=== PATIENT | female | born 1970 | race American Indian/Alaskan Native ===

== ENCOUNTER 2018-06-01 11:54 | Inpatient (IN) | payer OTHER ==
[2018-06-01] MEDS ORDERED: SUBLIMAZE IV PRN (12:59)
[2018-06-01] MEDS ORDERED: DILAUDID IV PRN (12:59)
[2018-06-01] MEDS ORDERED: VERSED IV NR (13:00)
--- NOTE | 2018-06-01 13:02 | Anesthesia Consultation ---
Anesthesia Consult and Med Hx Date of service: 06/01/18 - Airway Anesthetic Teeth Evaluation: Good ROM Head & Neck: Adequate Mental/Hyoid Distance: Adequate Mallampati Class: Class I Intubation Access Assessment: Probably Good - Pulmonary Exam CTA: Yes - Cardiac Exam Cardiac Exam: RRR - Pre-Operative Health Status ASA Pre-Surgery Classification: ASA2 Proposed Anesthetic Plan: General - Pulmonary Hx Smoking: No Hx Sleep Apnea: No - Cardiovascular System Hx Hypertension: No Hx Coronary Artery Disease: No Hx Heart Attack/AMI: No Hx Cardia Arrhythmia: No - Central Nervous System Hx Neuromuscular Disorder: No - Gastrointestinal Hx Gastroesophageal Reflux Disease: No - Endocrine Hx Renal Disease: Yes (hydroureter ) Hx Liver Disease: No Hx Insulin Dependent Diabetes: No Hx Non-Insulin Dependent Diabetes: No - Hematic Hx Sickle Cell Disease: No - Other Systems Hx Alcohol Use: No Hx Obesity: Yes - Additional Comments Anesthesia Medical History Comments: No GAC, No FHAC
--- NOTE | 2018-06-01 13:04 | Anesthesia Day of Surgery ---
Anesthesia Day of Surgery - Day of Surgery Patient Examined: Yes Patient H&P Reviewed: Yes Patient is NPO: Yes Beta Blockers: No (N/A) Cardiac Clearance: No (N/A) Pulmonary Clearance: No (N/a)
[2018-06-01] MEDS: NACL 0.9% 1000 ML 1,000 ML IV SCH ×2 (13:30→20:04)
[2018-06-01] MEDS ORDERED: SUBLIMAZE ONE (13:37)
[2018-06-01] MEDS ORDERED: DIPRIVAN 10 MG/ML IV ONE (13:37)
[2018-06-01] MEDS ORDERED: XYLOCAINE MPF 2% ONE (13:38)
[2018-06-01] MEDS ORDERED: ANCEF/STERILE WATER 2 GM/20 ML IV NR (14:00)
[2018-06-01] MEDS ORDERED: SODIUM CHLORIDE FLUSH SYRINGE 10 ML IV PRN (14:23)
[2018-06-01] MEDS ORDERED: TYLENOL PO PRN (14:23)
[2018-06-01] MEDS ORDERED: ZOFRAN IV PRN (14:23)
[2018-06-01] MEDS ORDERED: PROVENTIL IH PRN (14:23)
--- NOTE | 2018-06-01 14:25 | History and Physical Report ---
History of Present Illness Chief complaint: I have blockage History of present illness: 47 YO Female with Obesity, HTN, Urinary Obstruction admitted directly to Surgical Floor at the request of DR. Nichols. Pt found to have urinary obstruction and it taken to the OR for intervention. Pt denies fever chills, CP, Palpitations, Hematuria, BRBPR, Trauma, or recent ill contacts. Pt seen and evaluated and found to have no acute complaints. No reported nursing events. Urology consulted for surgical intervention. Pt taken electively to OR for intervention. Past History Past Medical History: hypertension, other (Obesity) Past Surgical History: No surgical history, Other (reviewed) Social history: single. denies: smoking Family history: no significant family history (reviewed) Medications and Allergies Allergies Allergy/AdvReac Type Severity Reaction Status Date / Time codeine AdvReac Itching Verified 06/01/18 13:16 latex AdvReac Hives Verified 06/01/18 13:17 Sulfa (Sulfonamide AdvReac Swelling Verified 06/01/18 13:16 Antibiotics) Home Medications Medication Instructions Recorded Confirmed Last Taken Type Acyclovir 400 mg PO PRN 06/01/18 06/01/18 Unknown History Flomax 0.4 mg PO DAILY 06/01/18 06/01/18 05/31/18 23:55 History Losartan 50 mg PO DAILY 06/01/18 06/01/18 05/31/18 09:00 History [place] 5-325 mg TAB 5 mg PO Q6H 06/01/18 06/01/18 05/31/18 23:55 History Ximino 90 mg pe PO DAILY 06/01/18 06/01/18 05/31/18 09:00 History Active Meds: Active Medications Cefazolin Sodium (Ancef/Sterile Water 2 Gm/20 Ml) 2 gm IV PREOP NR Stop: 06/01/18 23:59 Fentanyl (Sublimaze) 100 mcg IV ONCE PRN PRN Reason: Pain , Severe (7-10) Stop: 06/01/18 23:59 Hydromorphone HCl (Dilaudid) 0.5 mg IV Q10MIN PRN PRN Reason: Pain , Severe (7-10) Stop: 06/01/18 23:59 Sodium Chloride (Nacl 0.9% 1000 Ml) 1,000 mls @ 100 mls/hr IV DIRECT KAUR Midazolam HCl (Versed) 2 mg IV PREOP NR Stop: 06/01/18 23:59 Review of Systems Constitutional: no weight loss, no weight gain, no fever Ears, nose, mouth and throat: no ear pain, no ear discharge, no tinnitis, no nose pain Breasts: no change in shape, no swelling, no mass Cardiovascular: no chest pain, no orthopnea, no palpitations, no rapid/irregular heart beat, no edema Respiratory: no cough, no cough with sputum, no excessive sputum, no hemoptysis Gastrointestinal: no nausea, no vomiting, no diarrhea, no constipation Genitourinary Female: no pelvic pain, no flank pain, no menorrhagia, no dysuria, no urinary frequency, no urgency Rectal: no pain, no incontinence, no bleeding Musculoskeletal: no neck stiffness, no neck pain, no shooting arm pain, no arm numbness/tingling, no low back pain Integumentary: no rash, no pruritis, no redness, no sores, no wounds Neurological: no transient paralysis, no paralysis, no weakness, no parathesias, no numbness, no tingling Psychiatric: no memory loss, no change in sleep habits, no sleep disturbances, no insomnia, no hypersomnia, no change in appetite Endocrine: no cold intolerance, no heat intolerance, no polyphagia, no excessive thirst, no polydipsia, no polyuria Hematologic/Lymphatic: no easy bruising, no easy bleeding, no lymphadenopathy, no lymphedema Allergic/Immunologic: no urticaria, no allergic rhinitis, no wheezing Exam - Constitutional General appearance: Present: obese - EENT Eyes: Present: PERRL ENT: hearing intact, clear oral mucosa - Neck Neck: Present: supple, normal ROM - Respiratory Respiratory effort: normal Respiratory: bilateral: CTA - Cardiovascular Heart Sounds: Present: S1 & S2. Absent: rub, click - Extremities Extremities: pulses symmetrical, No edema Peripheral Pulses: within normal limits - Abdominal General gastrointestinal: Present: soft, non-tender, non-distended, normal bowel sounds Female genitourinary: Present: normal - Integumentary Integumentary: Present: clear, warm, dry - Musculoskeletal Musculoskeletal: gait normal, strength equal bilaterally - Psychiatric Psychiatric: appropriate mood/affect, intact judgment & insight - Neurologic Neurologic: CNII-XII intact, moves all extremities Results - Labs CBC & Chem 7: 06/02/18 05:30 06/02/18 05:30 Assessment and Plan - Patient Problems (1) Urinary obstruction Current Visit: Yes Status: Acute Plan to address problem: Urology consulted, Pt taken to OR for intervention. (2) HTN (hypertension) Current Visit: Yes Status: Acute Qualifiers: Hypertension type: essential hypertension Qualified Code(s): I10 - Essential (primary) hypertension Plan to address problem: Monitor bp q shift, continue current care. (3) Obesity Current Visit: Yes Status: Acute Qualifiers: Body mass index: BMI 30.0-30.9 Plan to address problem: Balanced diet, increased physical activity at discharge (4) DVT prophylaxis Current Visit: Yes Status: Acute Plan to address problem: SCD to BLE while in bed.
[2018-06-01] MEDS ORDERED: OMNIPAQUE 300 MG/50 ML (CATH LAB) IV ONE ×2 (14:45)
[2018-06-01] MEDS ORDERED: WATER FOR IRRIG STERILE IR ONE (14:47)
--- NOTE | 2018-06-01 14:56 | Post Operative Note ---
Pre-op diagnosis: Left Hydronephrosis, Rt Atrophic Kidney, AKD/CKD, Fever, Sepsis, Left Pelvi Post-op diagnosis: same Findings: left hydro, w/ some infectious draiange Procedure: cysto, rpg, left stent 7x26 placement Anesthesia: GEREMIASA Surgeon: OLEG MORAN Estimated blood loss: minimal Pathology: none Condition: stable Disposition: PACU
[2018-06-01] MEDS ORDERED: ACYCLOVIR 400 MG PO SCH (18:30)
[2018-06-01] MEDS ORDERED: NORCO PO SCH (18:30)
[2018-06-01] MEDS: NORCO 5/325 PO PRN (20:03)
[2018-06-01 21:13] LABS: Basophils % (Auto) 0.3 % (0.0-1.8); Eosinophils % (Auto) 0.5 % (0.0-4.3); Hematocrit 32.6 % (30.3-42.9); Hemoglobin 11.3 gm/dl (10.1-14.3); Lymphocytes # (Auto) 1.7 K/mm3 (1.2-5.4); Lymphocytes % (Auto) 28.7 % (13.4-35.0); Mean Corpuscular HGB Conc 35 % (30-34); Mean Corpuscular Volume 96 fl (79-97); Monocytes # (Auto) 0.5 K/mm3 (0.0-0.8); Monocytes % (Auto) 7.7 % (0.0-7.3); Platelet Count 269 K/mm3 (140-440); Red Blood Count 3.38 M/mm3 (3.65-5.03); Red Cell Distribution Width 14.2 % (13.2-15.2)
[2018-06-01] MEDS: SODIUM CHLORIDE FLUSH SYRINGE 10 ML IV SCH (21:18)
[2018-06-01 21:36] LABS: Albumin 3.8 g/dL (3.9-5); Calcium 8.4 mg/dL (8.4-10.2)
[2018-06-01] MEDS: ROCEPHIN/NS 1 GM/50 ML 1 GM/50 ML BAG IV SCH (23:23)
[2018-06-02 06:02] LABS: Basophils % (Auto) 0.5 % (0.0-1.8); Eosinophils # (Auto) 0.1 K/mm3 (0.0-0.4); Eosinophils % (Auto) 1.7 % (0.0-4.3); Hematocrit 30.7 % (30.3-42.9); Hemoglobin 10.6 gm/dl (10.1-14.3); Lymphocytes # (Auto) 1.9 K/mm3 (1.2-5.4); Mean Corpuscular HGB Conc 34 % (30-34); Mean Corpuscular Volume 96 fl (79-97); Monocytes # (Auto) 0.5 K/mm3 (0.0-0.8); Monocytes % (Auto) 9.4 % (0.0-7.3); Platelet Count 257 K/mm3 (140-440); Red Blood Count 3.19 M/mm3 (3.65-5.03); Red Cell Distribution Width 14.3 % (13.2-15.2)
[2018-06-02 06:31] LABS: Alanine Aminotransferase 8 units/L (7-56); Albumin 3.4 g/dL (3.9-5); BUN/Creatinine Ratio 7; Blood Urea Nitrogen 7 mg/dL (7-17); Hemolysis Index 9
[2018-06-02] MEDS: NACL 0.9% 1000 ML 1,000 ML IV SCH ×2 (06:37→14:49)
[2018-06-02] MEDS: NORCO 5/325 PO PRN ×3 (06:44→23:05)
--- NOTE | 2018-06-02 08:59 | Fluoroscopy Report ---
FLUOROSCOPY RETROGRADE UROGRAPHY: HISTORY: Left hydronephrosis. FINDINGS: Fluoroscopy was provided by radiology during retrograde urography by the urologist. 8 fluoroscopic images were captured. The right retrograde pyelogram is normal. There appears to be minimal dilatation of the proximal left ureter but no obvious filling defect is identified. Subsequent images demonstrate placement of a left ureteral stent with good drainage of the left collecting system on the final image. IMPRESSION: Minimal left hydronephrosis. A left ureteral stent placement.
[2018-06-02] MEDS: COZAAR PO SCH (09:22)
[2018-06-02] MEDS: FLOMAX PO SCH (09:22)
[2018-06-02] MEDS: SODIUM CHLORIDE FLUSH SYRINGE 10 ML IV SCH ×2 (09:32→23:02)
--- NOTE | 2018-06-02 09:38 | Operative Report ---
PREOPERATIVE DIAGNOSES: 1. Right atrophic kidney. 2. Fever. 3. Left hydronephrosis secondary to left pelvic mass. 4. Renal insufficiency. POSTOPERATIVE DIAGNOSES: 1. Right atrophic kidney. 2. Fever. 3. Left hydronephrosis secondary to left pelvic mass. 4. Renal insufficiency. PROCEDURE: Cystoscopy, bilateral RPG, left 7 x 26 double-J stent. SURGEON: Yovanny Nichols MD ANESTHESIA: General. SPECIMENS: None. ESTIMATED BLOOD LOSS: Minimal. FINDINGS: Left hydroureter, hydronephrosis and some debris on drainage. CLINICAL INDICATIONS: The patient was counseled on RCBA, antibiotics, SCDs. She was evaluated yesterday for the first time, late yesterday in the office. She had stated at that time, she was sent over to have a stent placed in the office. We counseled her and now on her initial evaluation found that they needed anatomical localization as well as in addition to anatomical localization needed relief of the hydronephrosis. The patient had this pelvic ovarian cystic mass, but her pain on Wednesday was significantly worse, and she presented to the Emergency Room where they did a CT. Her pain had been significantly worse at that time since Wednesday for unknown reason. At this point, she was counseled on options and counseled with possible other etiologies of her pain and options for treatment. She was counseled exclusively on risks of stent, including stent ____ for stent. She understood and desired to proceed. DESCRIPTION OF PROCEDURE: The patient was transferred to OR suite in supine position, anesthesia, dorsal lithotomy, prepped and draped in standard fashion. A 22-[place] scope passed. Pancystoscopy 30 and 70 degree lens, no tumors or lesions identified. Right UO cannulated with 8 [place] cone-tipped catheter, contrast injected. Normal right distal ureter, proximal ureter, renal pelvis calyces. Of note, prior to injection, there was noted to be efflux from the right ureteral orifice. At this point, it was performed on the left side with hydroureter, likely above the bony pelvis hydroureter and some mild hydronephrosis. At this point, a Glidewire was manipulated up to the left renal pelvis. A 7 x 26 double-J stent was passed over the wire under direct and fluoroscopic visualization. When the wire and string removed, nice proximal J, nice distal J within the bladder, bladder drained. The ureter was noted to straighten some, the bladder did drain. The scope was withdrawn. Exam under anesthesia bimanual, no definitive palpable hard mass. JOB# [id number] ATS/NTS
[2018-06-02] MEDS ORDERED: [UNRECOGNIZED DRUG - OTHER] PO SCH (10:00)
[2018-06-02] MEDS ORDERED: NON-FORMULARY (Losartan 50 MG) PO SCH (10:00)
[2018-06-02] MEDS ORDERED: NON-FORMULARY (Flomax 0.4 MG) PO SCH (10:00)
--- NOTE | 2018-06-02 10:49 | Event Note ---
Date: 06/02/18 LT HYDRO / PELVIC MASS / CKD / RT ATROPHIC KIDNEY FEVER / UTI - admitted for sepsis monitoring - plan d/c ha, when afebrile and improved; home w/ outpt antibiotics and urology f/u 1 week
[2018-06-02] MEDS: DILAUDID IV PRN ×3 (12:30→20:17)
[2018-06-02] MEDS: ROCEPHIN/NS 1 GM/50 ML 1 GM/50 ML BAG IV SCH (16:40)
--- NOTE | 2018-06-02 17:45 | Progress Note ---
Assessment and Plan LT HYDRO / FEVER / UTI / CKD / LT PELVIC MASSS - s/p stent - per pt can take Hydrocodone w/ o allergic reaction take currently and past - leland malhotra'd - ok to go home from Urology stand point pre op fever resolved, wbc nl - home w/ pain meds / abx - Rx for Hydrocodone and Ceftin an chart Subjective Date of service: 06/02/18 Interval history: pain w/ voiding Objective - Constitutional Vitals: Vital Signs - 12hr 06/02/18 06/02/18 06/02/18 06:44 08:00 08:20 Temperature 98.6 F Pulse Rate 89 85 Respiratory 18 18 Rate Blood Pressure 136/84 [Left] O2 Sat by Pulse 99 Oximetry 06/02/18 08:55 Temperature Pulse Rate Respiratory Rate Blood Pressure [Left] O2 Sat by Pulse 99 Oximetry General appearance: Present: no acute distress - Labs CBC & Chem 7: 06/02/18 05:30 06/02/18 05:30 Labs: Abnormal lab results 06/01/18 06/01/18 06/02/18 Range/Units 20:26 20:26 05:30 RBC 3.38 L 3.19 L (3.65-5.03) M/mm3 MCH 33 H 33 H (28-32) pg MCHC 35 H (30-34) % [place] % (Auto) 7.7 H 9.4 H (0.0-7.3) % Chloride (98-107) mmol/L Glucose 131 H (65-100) mg/dL Calcium (8.4-10.2) mg/dL Total Protein (6.3-8.2) g/dL Albumin 3.8 L (3.9-5) g/dL 06/02/18 Range/Units 05:30 RBC (3.65-5.03) M/mm3 MCH (28-32) pg MCHC (30-34) % [place] % (Auto) (0.0-7.3) % Chloride 107.4 H (98-107) mmol/L Glucose (65-100) mg/dL Calcium 8.0 L (8.4-10.2) mg/dL Total Protein 5.6 L (6.3-8.2) g/dL Albumin 3.4 L (3.9-5) g/dL Medications & Allergies - Medications Allergies/Adverse Reactions: Allergies codeine Adverse Reaction (Verified 06/01/18 13:16) Itching latex Adverse Reaction (Verified 06/01/18 13:17) Hives Sulfa (Sulfonamide Antibiotics) Adverse Reaction (Verified 06/01/18 13:16) Swelling Home Medications: Home Medications Medication Instructions Recorded Confirmed Last Taken Type Acyclovir 400 mg PO PRN 06/01/18 06/01/18 Unknown History Flomax 0.4 mg PO DAILY 06/01/18 06/01/18 05/31/18 23:55 History Losartan 50 mg PO DAILY 06/01/18 06/01/18 05/31/18 09:00 History [place] 5-325 mg TAB 5 mg PO Q6H 06/01/18 06/01/18 05/31/18 23:55 History Ximino 90 mg pe PO DAILY 06/01/18 06/01/18 05/31/18 09:00 History Active Medications: Generic Name Dose Route Start Last Admin Trade Name Freq PRN Reason Stop Dose Admin Acetaminophen 650 mg 06/01/18 14:23 Tylenol PO Q4H PRN Pain MILD(1-3)/Fever >100.5/GONZALES Acetaminophen/Hydrocodone Bitart 1 each 06/01/18 18:40 06/02/18 14:48 [place] 5/325 PO 1 each Q6H PRN Administration Pain, Moderate (4-6) Albuterol 2.5 mg 06/01/18 14:23 Proventil IH Q4HRT PRN Shortness Of Breath Hydromorphone HCl 0.25 mg 06/01/18 14:23 06/02/18 16:35 Dilaudid IV 0.25 mg Q3H PRN Administration Pain, Moderate (4-6) Sodium Chloride 1,000 mls @ 100 mls/hr 06/01/18 13:00 06/02/18 14:49 Nacl 0.9% 1000 Ml IV 100 mls/hr DIRECT KAUR Administration Ceftriaxone Sodium 1 gm in 50 mls @ 100 mls/hr 06/01/18 16:00 06/02/18 16:40 Rocephin/Ns 1 Gm/50 Ml IV 100 mls/hr Q24H KAUR Administration Protocol Losartan Potassium 50 mg 06/02/18 10:00 06/02/18 09:22 Cozaar PO 50 mg QDAY [facility] Administration Miscellaneous Medication 400 mg 06/01/18 18:30 Acyclovir PO PRN [facility] Miscellaneous Medication 90 mg pe 06/02/18 10:00 Ximino PO DAILY [facility] Ondansetron HCl 4 mg 06/01/18 14:23 Zofran IV Q8H PRN Nausea And Vomiting Oxybutynin Chloride 5 mg 06/02/18 16:53 Ditropan PO TID KAUR Sodium Chloride 10 ml 06/01/18 22:00 06/02/18 09:32 Sodium Chloride Flush Syringe 10 Ml IV 10 ml BID KAUR Administration Sodium Chloride 10 ml 06/01/18 14:23 Sodium Chloride Flush Syringe 10 Ml IV PRN PRN LINE FLUSH Tamsulosin HCl 0.4 mg 06/02/18 10:00 06/02/18 09:22 Flomax PO 0.4 mg QDAY [facility] Administration
[2018-06-02] MEDS: DITROPAN PO SCH ×2 (18:06→23:02)
[2018-06-03 05:00] VITALS: BP 125/70
[2018-06-03] MEDS: DILAUDID IV PRN (05:04)
[2018-06-03] MEDS: COZAAR PO SCH (08:17)
[2018-06-03] MEDS: DITROPAN PO SCH (08:18)
[2018-06-03] MEDS: FLOMAX PO SCH (08:18)
--- NOTE | 2018-06-03 13:23 | Progress Note ---
Assessment and Plan Assessment and plan: Left hydronephrosis secondary to left pelvic mass. Patient status post cystoscopy with bilateral RPG and placement of left double-J stent. Nephrology following. SIRS. Fever appears to have resolved. We'll follow cultures. Right atrophic kidney. Obstructive uropathy. Etiology secondary to above. Hypertension. Continue his medications. Morbid obesity. History Interval history: No new issues overnight Hospitalist Physical - Constitutional Vitals: Temp Pulse Resp BP Pulse Ox 98.4 F 64 18 125/70 99 06/03/18 07:54 06/03/18 08:17 06/03/18 07:54 06/03/18 08:17 06/03/18 07:54 General appearance: Present: no acute distress - EENT Eyes: Present: PERRL, EOM intact ENT: hearing intact, clear oral mucosa, dentition normal - Neck Neck: Present: supple, normal ROM - Respiratory Respiratory effort: normal Respiratory: bilateral: CTA - Cardiovascular Rhythm: regular Heart Sounds: Present: S1 & S2. Absent: gallop, rub - Extremities Extremities: no ischemia, No edema, Full ROM - Abdominal General gastrointestinal: soft, non-tender, non-distended, normal bowel sounds - Integumentary Integumentary: Present: clear, warm, dry - Neurologic Neurologic: CNII-XII intact, moves all extremities Results - Labs CBC & Chem 7: 06/02/18 05:30 06/02/18 05:30 Labs: Laboratory Last Values WBC 5.4 K/mm3 (4.5-11.0) 06/02/18 05:30 RBC 3.19 M/mm3 (3.65-5.03) L 06/02/18 05:30 Hgb 10.6 gm/dl (10.1-14.3) 06/02/18 05:30 Hct 30.7 % (30.3-42.9) 06/02/18 05:30 MCV 96 fl (79-97) 06/02/18 05:30 MCH 33 pg (28-32) H 06/02/18 05:30 MCHC 34 % (30-34) 06/02/18 05:30 RDW 14.3 % (13.2-15.2) 06/02/18 05:30 Plt Count 257 K/mm3 (140-440) 06/02/18 05:30 Lymph % (Auto) 35.0 % (13.4-35.0) 06/02/18 05:30 [place] % (Auto) 9.4 % (0.0-7.3) H 06/02/18 05:30 Eos % (Auto) 1.7 % (0.0-4.3) 06/02/18 05:30 Baso % (Auto) 0.5 % (0.0-1.8) 06/02/18 05:30 Lymph # 1.9 K/mm3 (1.2-5.4) 06/02/18 05:30 [place] # 0.5 K/mm3 (0.0-0.8) 06/02/18 05:30 Eos # 0.1 K/mm3 (0.0-0.4) 06/02/18 05:30 Baso # 0.0 K/mm3 (0.0-0.1) 06/02/18 05:30 Seg Neutrophils % 53.4 % (40.0-70.0) 06/02/18 05:30 Seg Neutrophils # 2.9 K/mm3 (1.8-7.7) 06/02/18 05:30 Sodium 142 mmol/L (137-145) 06/02/18 05:30 Potassium 3.7 mmol/L (3.6-5.0) 06/02/18 05:30 Chloride 107.4 mmol/L (98-107) H 06/02/18 05:30 Carbon Dioxide 23 mmol/L (22-30) 06/02/18 05:30 Anion Gap 15 mmol/L 06/02/18 05:30 BUN 7 mg/dL (7-17) 06/02/18 05:30 Creatinine 1.0 mg/dL (0.7-1.2) 06/02/18 05:30 Estimated GFR > 60 ml/min 06/02/18 05:30 BUN/Creatinine Ratio 7 % 06/02/18 05:30 Glucose 100 mg/dL (65-100) 06/02/18 05:30 Calcium 8.0 mg/dL (8.4-10.2) L 06/02/18 05:30 Total Bilirubin 0.50 mg/dL (0.1-1.2) 06/02/18 05:30 AST 12 units/L (5-40) 06/02/18 05:30 ALT 8 units/L (7-56) 06/02/18 05:30 Alkaline Phosphatase 44 units/L (35-129) 06/02/18 05:30 Total Protein 5.6 g/dL (6.3-8.2) L 06/02/18 05:30 Albumin 3.4 g/dL (3.9-5) L 06/02/18 05:30 Albumin/Globulin Ratio 1.5 % 06/02/18 05:30
--- NOTE | 2018-06-03 13:27 | Discharge Summary ---
Providers - Providers Date of Admission: 06/01/18 14:26 Date of discharge: 06/03/18 Attending physician: OLEG NICHOLS 06/01/18 14:26 Consult to Physician [CONS] Routine Comment: Consulting Provider: OLEG NICHOLS Physician Instructions: Reason For Exam: urinary obstruction Primary care physician: DEREK RINCON MD Hospitalization Reason for admission: urinary obs Hospital course: 47 YO Female with Obesity, HTN, Urinary Obstruction admitted directly to Surgical Floor at the request of DR. Nichols. Pt found to have urinary obstruction and it taken to the OR for intervention. The patient was patient was admitted with diagnosis of left hydronephrosis secondary to left pelvic mass. He was also noted to have SIRS with fever. The patient underwent cystoscopy with bilateral RPG and placement of left double-J stent. The patient tolerated the procedure well and was stable postoperatively. Dr. Trevizo saw the patient on the morning of 06/03/18 and reported that the patient was okay to go home from their standpoint and that the fever resolved. Also, leukocytosis was noted to have resolved as well. Dr. Trevizo gave prescriptions for hydrocodone and Ceftin and patient is to follow-up as an outpatient. The nurse discharge the patient under Dr. Trevizo's instructions. Unfortunately, I do not see the patient prior to discharge. Disposition: TO HOME OR SELFCARE Time spent for discharge: 32 - Discharge Diagnoses (1) HTN (hypertension) Status: Acute Qualifiers: Hypertension type: essential hypertension Qualified Code(s): I10 - Essential (primary) hypertension (2) Obesity Status: Acute Qualifiers: Body mass index: BMI 30.0-30.9 (3) Urinary obstruction Status: Acute Core Measure Documentation - Palliative Care Palliative Care/ Comfort Measures: Not Applicable - Core Measures Any of the following diagnoses?: none Exam - Constitutional Vitals: Temp Pulse Resp BP Pulse Ox 98.4 F 64 18 125/70 99 06/03/18 07:54 06/03/18 08:17 06/03/18 07:54 06/03/18 08:17 06/03/18 07:54 - Cardiovascular Heart Sounds: Absent: rub, click Plan Activity: no restrictions Weight Bearing Status: Weight Bear as Tolerated Follow up with: DEREK RINCON MD [Primary Care Provider] - 7 Days Prescriptions: cefUROXime [Ceftin] 500 mg PO Q12H #20 tablet HYDROcodone/APAP 10-325 [[employer] 10-325 mg TAB] 0.5 - 1 each PO Q6HR PRN #25 tablet PRN Reason: Pain
--- NOTE | 2018-06-03 17:33 | Progress Note ---
Assessment and Plan LT HYDRO / FEVER / UTI / CKD / LT PELVIC MASSS - s/p stent - per pt can take Hydrocodone w/ o allergic reaction take currently and past - [place] dc'd - ok to go home from Urology stand point pre op fever resolved, wbc nl - home w/ pain meds / abx - Rx for Hydrocodone and Ceftin an chart 06/03/18 - pt no chills - baseline pre op pain gone - new pain when void pressure - secondary to stent - d/c when ok w/ medicine Subjective Date of service: 06/03/18 Interval history: pain w/ voiding but baseline pain pre op pain gone Objective - Constitutional Vitals: Vital Signs - 12hr 06/03/18 06/03/18 06/03/18 07:54 08:17 10:00 Temperature 98.4 F Pulse Rate 60 64 Respiratory 18 Rate Blood Pressure 114/60 125/70 O2 Sat by Pulse 99 97 Oximetry General appearance: Present: no acute distress - Labs CBC & Chem 7: 06/02/18 05:30 06/02/18 05:30 Medications & Allergies - Medications Allergies/Adverse Reactions: Allergies codeine Adverse Reaction (Verified 06/01/18 13:16) Itching latex Adverse Reaction (Verified 06/01/18 13:17) Hives Sulfa (Sulfonamide Antibiotics) Adverse Reaction (Verified 06/01/18 13:16) Swelling Home Medications: Home Medications Medication Instructions Recorded Confirmed Last Taken Type Acyclovir 400 mg PO PRN 06/01/18 06/01/18 Unknown History Flomax 0.4 mg PO DAILY 06/01/18 06/01/18 05/31/18 23:55 History Losartan 50 mg PO DAILY 06/01/18 06/01/18 05/31/18 09:00 History [place] 5-325 mg TAB 5 mg PO Q6H 06/01/18 06/01/18 05/31/18 23:55 History Ximino 90 mg pe PO DAILY 06/01/18 06/01/18 05/31/18 09:00 History HYDROcodone/APAP 10-325 [[place] 0.5 - 1 each PO Q6HR PRN #25 tablet 06/02/18 Unknown Rx 10-325 mg TAB] cefUROXime [Ceftin] 500 mg PO Q12H #20 tablet 06/02/18 Unknown Rx
== END 2018-06-03 10:00 | disposition home or self-care (01) | DRG 660 ==
LOC: OR 11:54 → 3B-SURG 14:26
PROVIDERS: ADMIT Internal Medicine; ATTEND Urology
PROC: 0T778DZ Dilation of Left Ureter with Intraluminal Device, Via Natural or Artificial Opening Endoscopic (ICD-10-PCS; principal; 2018-06-01)
PROC: BT141ZZ Fluoroscopy of Kidneys, Ureters and Bladder using Low Osmolar Contrast (ICD-10-PCS; 2018-06-01)
DX: N13.30 Unspecified hydronephrosis (principal); R65.10 Systemic inflammatory response syndrome (SIRS) of non-infectious origin without acute organ dysfunction; N39.0 Urinary tract infection, site not specified; N18.9 Chronic kidney disease, unspecified; R19.00 Intra-abdominal and pelvic swelling, mass and lump, unspecified site; I12.9 Hypertensive chronic kidney disease with stage 1 through stage 4 chronic kidney disease, or unspecified chronic kidney disease; E66.01 Morbid (severe) obesity due to excess calories; D72.829 Elevated white blood cell count, unspecified; Z68.30 Body mass index [BMI] 30.0-30.9, adult; Z88.2 Allergy status to sulfonamides; Z91.040 Latex allergy status; Z88.5 Allergy status to narcotic agent; Z79.899 Other long term (current) drug therapy
CPT/HCPCS: 36415; 74420; 80053; 81025; 85025; 87040; G0378; A4217; C1758; C1769; C2617; J0690; J0696; J1170; J2704; J3010; J7030; Q9967